=== PATIENT | female | born 1955 | race Caucasian/White ===

== ENCOUNTER 2022-01-01 10:21 | Emergency (ER) | payer MEDICARE, OTHER ==
[~2022-01-01] VITALS: Ht 154.9 cm; Wt 66.2 kg
[2022-01-01] MEDS ORDERED: LIDOCAINE 1% INJ 20 ML VIAL INJ STA (10:37)
[2022-01-01] MEDS ORDERED: AUGMENTIN 875 MG TAB (AMOXICILLIN/CLAVULANATE) PO STA (10:37)
[2022-01-01] MEDS ORDERED: TETANUS,DIPTH,PERTUSS P/F (BOOSTRIX) 0.5 ML VIAL IM ONE (10:45)
--- NOTE | 2022-01-01 10:59 | ED Head Injury ---
General Chief Complaint: Laceration Stated Complaint: HEAD INJ Source: patient History of Present Illness Date Seen by Provider: Jan 01, 2022 Time Seen by Provider: 10:25 Initial Comments 66-year-old female presenting with laceration to her anterior scalp. She was moving the trash can when the wind caught the trash can lid and caused it to fly back hitting her head. She denies any loss of consciousness. She had a laceration to her scalp in the frontal part of her hair. She denies taking any blood thinners. She has no headache, nausea, vomiting, change in vision, numbness, weakness. She states it has been more than 10 years for her last tetanus shot. Occurred: just prior to arrival Severity: mild Location: frontal Method of Injury: direct blow Loss of Consciousness: no loss of consciousness Associated Systoms: No Chest Pain, No Cough, No Diaphoresis, No Fever/Chills, No Headaches, No Loss of Appetite, No Malaise, No Nausea/Vomiting, No Rash, No Seizure, No Shortness of Air, No Syncope, No Weakness Allergies and Home Medications Allergies Coded Allergies: cephalexin (Verified Allergy, Unknown, 01/01/22) Patient Home Medication List Home Medication List Reviewed: Yes Amoxicillin/Potassium Clav (Amox Tr-K Clv 875-125 mg Tab) 875 Mg-125 Mg Tablet, 1 EACH PO BID Prescribed by: CY LEIJA on 01/01/22 1201 Review of Systems Review of Systems Constitutional: No chills, No dizziness, No fever Eyes: Denies Blurred Vision, Denies Pain, Denies Photophobia, Denies Vision Changes Ears, Nose, Mouth, Throat: denies ear pain, denies ear discharge, denies nose pain, denies nose discharge, denies epistaxis Respiratory: No cough, No short of breath Cardiovascular: No chest pain Gastrointestinal: No nausea, No vomiting Genitourinary: no symptoms reported Musculoskeletal: No neck pain Skin: see HPI Psychiatric/Neurological: Denies Headache, Denies Numbness, Denies Tingling Hematologic/Lymphatic: Denies Easy Bleeding, Denies Easy Bruising Past Bzbktby-[id number]-[id number] Hx Patient Social History Tobacco Use?: Yes Tobacco type used: Cigarettes Smoking Status: Current Everyday Smoker Smokeless Tobacco Frequency: Never a User Use of E-Cig and/or Vaping dev: No Substance use?: No Alcohol Use?: No Pt feels they are or have been: No Past Medical History Surgery/Hospitalization HX: Hypertension Physical Exam Vital Signs Vital Signs - First Documented 01/01/22 01/01/22 10:27 12:09 Temp 36.6 Pulse 90 Resp 17 B/P (MAP) 136/88 (104) Pulse Ox 98 O2 Delivery Room Air Capillary Refill : Height, Weight, BMI Height: '" Weight: lbs. oz. kg; BMI Method: General Appearance: WD/WN, no apparent distress HEENT: PERRL/EOMI, normal ENT inspection, TMs normal, pharynx normal Neck: non-tender, full range of motion, supple, normal inspection Cardiovascular: normal peripheral pulses, regular rate, rhythm Respiratory: chest non-tender, lungs clear, normal breath sounds Extremities: normal range of motion, non-tender, normal capillary refill Psychiatric: alert, oriented x 3 [place] Nerves: normal hearing, normal speech, PERRL Coordination/Gait: normal gait Motor/Sensory: no motor deficit, no sensory deficit Skin: normal color, warm/dry [place] Coma Score Best Eye Response: (4) Open Spontaneously Best Verbal Response: (5) Oriented Best Motor Response: (6) Obeys Commands [place] Total: 15 Images 1 - 5.8 cm laceration to frontal scalp Procedures/Interventions Wound Location: Scalp Wound Length (cm): 5.8 Wound's Depth, Shape: linear, contused tissue, sub Q Wound Explored: clean Anesthesia: 1% Lidocaine Volume Anesthetic (ccs): 8 Staple Repair: Stapler 35W Progress After obtaining verbal informed consent from the patient the wound was anesthetized with 1% plain lidocaine. A total of 8 mL of 1% plain lidocaine was infiltrated into the wound. Then using sterile water and chlorhexidine scrub soap the wound was cleaned and scrubbed. There was no obvious foreign body seen. Patient tolerated this relatively well. Using stapler the wound edges were approximated with 9 deb. Counseled on follow-up and return precautions. Advised to have the deb out in 7 to 10 days. Started on Augmentin since the wound was from a trash can lid. Also update her tetanus booster since she states it has been more than 10 years. Progress/Results/Core Measures Results/Orders My Orders Orders - CY LEIJA MD Lidocaine 1% Inj 20 Ml (Xylocaine 1% Inj (01/01/22 10:37) Dipht,Pertuss(Acell),Tet Adult (Boostrix (01/01/22 10:45) Amoxicillin/Clavulanate Tablet (Augmenti (01/01/22 10:37) Lidocaine 1% Inj 50 Ml (Xylocaine 1% Inj (01/01/22 11:53) Medications Given in ED Current Medications Medications Dose Ordered Sig/Vidya Route Start Time Stop Time Status Last Admin Dose Admin Diphtheria/ Tetanus/Acell Pertussis 0.5 ml ONCE ONCE IM 01/01/22 10:45 01/01/22 10:46 DC 01/01/22 11:57 0.5 ML Lidocaine HCl 50 ml STK-MED ONCE .ROUTE 01/01/22 11:53 01/01/22 11:55 DC 01/01/22 12:00 50 ML Vital Signs/I&O 01/01/22 01/01/22 10:27 12:09 Temp 36.6 Pulse 90 76 Resp 17 15 B/P (MAP) 136/88 (104) 141/87 Pulse Ox 98 O2 Delivery Room Air Room Air Progress Progress Note : Progress Note Wound was anesthetized and cleaned prior to closure with stapler. No obvious foreign bodies were seen. Patient was updated on her tetanus booster as well as given a first dose of Augmentin. Counseled on follow-up and return precautions. Advised to have the deb out in 7 to 10 days. As she was not taking a blood thinner and had no loss of consciousness no imaging of her face, head, cervical spine was deemed necessary. Departure Impression Primary Impression: Laceration of scalp without foreign body Qualified Codes: S01.01XA - Laceration without foreign body of scalp, initial encounter Disposition: HOME, SELF-CARE Condition: Stable Departure-Patient Inst. Decision time for Depature: 11:57 Referrals: FLAKO GARCIA MD (PCP) Primary Care Physician Patient Instructions: Laceration Repair With [place] [facility], Diphtheria and Tetanus Toxoids, and Acellular Pertussis Vaccine Add. Discharge Instructions: Keep wound clean and dry for first 24 hours then may wash with soap/shampoo and water like normal. Do not soak the wound. [place] may be removed in 7 to 10 days. Be seen sooner if having concerns for infection such as pus draining from wound, redness streaking across forehead, fever over 101 F May apply ice pack 10-15 minutes every few hours as needed for pain, bruising and swelling. Try to sleep with your head elevated 30-45 degrees for the next 2-3 nights to help limit swelling and bruising to the wound. All discharge instructions reviewed with patient and/or family. Voiced understanding. Scripts Amoxicillin/Potassium Clav (Amox Tr-K Clv 875-125 mg Tab) 875 Mg-125 Mg Tablet 1 EACH PO BID for scalp laceration for 7 Days, #14 TAB 0 Refills Prov: CY LEIJA MD 01/01/22 CY LEIJA MD Jan 01, 2022 10:59
[2022-01-01] MEDS ORDERED: LIDOCAINE 1% INJ 50 ML (XYLOCAINE) VIAL ONE (11:53)
[2022-01-01] MEDS ORDERED: AMOX1TAB12 PO (12:01)
[2022-01-01 12:09] VITALS: BP 141/87
== END 2022-01-01 12:09 | disposition home or self-care (01) ==
LOC: ER FS 10:25
DX: S01.01XA Laceration without foreign body of scalp, initial encounter (principal); F17.210 Nicotine dependence, cigarettes, uncomplicated; Z23 Encounter for immunization; W20.8XXA Other cause of strike by thrown, projected or falling object, initial encounter
CPT/HCPCS: 90715; 99284